=== PATIENT | female | born 1980 | race American Indian/Alaskan Native ===

== ENCOUNTER 2019-01-31 20:10 | Emergency (ER) | payer OTHER ==
--- NOTE | 2019-01-31 21:23 | Emergency Department Report ---
Chief Complaint: Extremity Injury, Lower Stated Complaint: BILATERAL LEG, FOOT SWELLING, AND PAIN Time Seen by Provider: 01/31/19 21:23 - HPI History of Present Illness: ble swelling rx none pmh none psh csec mom and dad a/w mse completed MSE screening note: Focused history and physical exam performed. Due to findings the following was ordered: ED Disposition for MSE Condition: Stable
[2019-01-31 21:24] VITALS: BP 130/73
[2019-01-31 21:58] LABS: Hematocrit 33.8 % (30.3-42.9); Hemoglobin 10.4 gm/dl (10.1-14.3); Mean Corpuscular HGB Conc 31 % (30-34); Mean Corpuscular Volume 67 fl (79-97); Platelet Count 343 K/mm3 (140-440); Red Blood Count 5.02 M/mm3 (3.65-5.03); Red Cell Distribution Width 21.4 % (13.2-15.2)
[2019-01-31 22:11] LABS: Bilirubin,Urine NEG (Negative); Blood,Urine MOD (Negative); Color,Urine Yellow (Yellow); Mucus,Urine 1+ /HPF; Protein,Urine <15 mg/dL mg/dL (Negative)
[2019-01-31 22:16] LABS: Alanine Aminotransferase 32 units/L (7-56); Albumin 3.3 g/dL (3.9-5); BUN/Creatinine Ratio 30; Blood Urea Nitrogen 15 mg/dL (7-17); Calcium 9.3 mg/dL (8.4-10.2); Hemolysis Index 4
[2019-01-31 22:16] LABS: HCG Qualitative,Urine Negative (Negative)
== END 2019-02-01 02:12 | disposition left against medical advice (07) ==
LOC: ED 20:10
DX: M79.605 Pain in left leg (principal); M79.604 Pain in right leg; Z53.21 Procedure and treatment not carried out due to patient leaving prior to being seen by health care provider
CPT/HCPCS: 36415; 80053; 81001; 81025; 85027; 85379